=== PATIENT | female | born 1980 | race Caucasian/White ===

== ENCOUNTER → 2017-04-01 | Outpatient (CLI) | payer MEDICAID ==
[~2017-04-01] MED LIST: BENADRYL25 M2 PO; CLEOCIN HC150 MG/CAP PO; MOTRIN 800800 MG/TAB PO; NAPROSYN500 MG PO; NORCO 325 MG-51 TAB PO; PERCOCET 325 MG1 TA2 PO; TORADOL 10MG TA10 MG PO; ULTRAM 50MG TAB50 MG PO; ZOFRAN8 MG PO; ZOLOFT 25MG25 MG PO
== END ==
LOC: COL.VAS 13:46
DX: I70.213 Atherosclerosis of native arteries of extremities with intermittent claudication, bilateral legs (principal); M79.672 Pain in left foot

== ENCOUNTER → 2017-04-08 | Outpatient (CLI) | payer MEDICAID | LOC: COL.RAD 07:53 | DX: M51.26 Other intervertebral disc displacement, lumbar region (principal); M48.061 Spinal stenosis, lumbar region without neurogenic claudication; M62.81 Muscle weakness (generalized) ==

== ENCOUNTER → 2017-04-16 | Outpatient (CLI) | payer MEDICAID | LOC: COL.LAB 12:03 | DX: R20.0 Anesthesia of skin (principal) ==

== ENCOUNTER → 2017-04-16 | Outpatient (CLI) | payer MEDICAID | LOC: COL.RAD 13:25 | DX: R20.0 Anesthesia of skin (principal) ==

== ENCOUNTER → 2018-01-18 | Outpatient (CLI) | payer MEDICAID | LOC: MHCPAIN 08:25 | DX: G89.29 Other chronic pain (principal); M47.817 Spondylosis without myelopathy or radiculopathy, lumbosacral region; M54.16 Radiculopathy, lumbar region; M53.3 Sacrococcygeal disorders, not elsewhere classified | CPT/HCPCS: G0463 ==

== ENCOUNTER → 2018-01-28 | Outpatient (CLI) | payer MEDICAID | LOC: MHCPAIN 07:34 | DX: M47.817 Spondylosis without myelopathy or radiculopathy, lumbosacral region (principal); M54.16 Radiculopathy, lumbar region | CPT/HCPCS: J1100; J2250; J3010; Q9967 ==

== ENCOUNTER → 2018-02-10 | Outpatient (CLI) | payer MEDICAID | LOC: MHCPAIN 10:21 | DX: G89.29 Other chronic pain (principal); M47.817 Spondylosis without myelopathy or radiculopathy, lumbosacral region; M54.16 Radiculopathy, lumbar region; M53.3 Sacrococcygeal disorders, not elsewhere classified | CPT/HCPCS: G0463 ==

== ENCOUNTER → 2018-04-28 | Outpatient (CLI) | payer MEDICAID | LOC: COL.RAD 07:18 | DX: M51.26 Other intervertebral disc displacement, lumbar region (principal); M48.061 Spinal stenosis, lumbar region without neurogenic claudication ==